=== PATIENT | female | born 1940 | race Caucasian/White ===

== ENCOUNTER 2021-05-09 11:49 | Emergency (ER) | payer OTHER ==
[~2021-05-09] VITALS: Ht 157.5 cm; Wt 63.5 kg
[2021-05-09 11:59] VITALS: BP 135/52
[2021-05-09 13:37] VITALS: BP 135/52
== END 2021-05-09 13:39 | disposition home or self-care (01) ==
LOC: MED 11:49
DX: I83.812 Varicose veins of left lower extremity with pain (principal); L84 Corns and callosities; E11.9 Type 2 diabetes mellitus without complications; D64.9 Anemia, unspecified; E78.00 Pure hypercholesterolemia, unspecified
CPT/HCPCS: 99281